=== PATIENT | male | born 1955 | race Caucasian/White ===

== ENCOUNTER 2016-05-27 13:23 | Outpatient (CLI) | payer OTHER ==
--- NOTE | 2016-05-27 17:21 | DIAGNOSTIC IMAGING REPORT ---
PROCEDURE: XR LUMBAR SPINE FLEX/EXTENSION INDICATION: POST SURGERY AND FUSIONS TECHNIQUE: Three views with flexion and extension. COMPARISON: Lumbar spine same date FINDINGS: Fusion of L3 L4-L5. Hardware is intact. No evidence of fracture. No evidence of motion. IMPRESSION: 1. L3-L5 fusion. No motion with flexion and extension.
--- NOTE | 2016-05-27 17:50 | DIAGNOSTIC IMAGING REPORT ---
PROCEDURE: MR LUMBAR SPINE W/WO CONTRAST INDICATION: LBP,HX SURG TECHNIQUE: Noncontrast T1, T2, and STIR sagittal images. T1 and T2 axial images. COMPARISON: Lumbar spine films dated day 05/27/2016 FINDINGS: Posterior fusion and pedicle screws involving L3, L4 and L5. L1-2: Normal. L2-3: There is spinal stenosis at L2-3 with the AP dimension of the canal measuring less than 8 mm. This is secondary to diffuse disc bulge anteriorly and hypertrophy of the ligamentum flavum posteriorly. L3-4: No evidence of disc herniation or canal compromise L4-5: No evidence of disc herniation or canal compromise L5-S1: No evidence of disc herniation or canal compromise IMPRESSION: 1. Hypertrophic spinal stenosis L2-3.
== END 2016-05-27 23:00 ==
LOC: MRI SRH 13:23
DX: M48.06 Spinal stenosis, lumbar region (principal); Z98.1 Arthrodesis status
CPT/HCPCS: 90074; 91631; 92560